=== PATIENT | male | born 1985 | race Caucasian/White ===

== ENCOUNTER 2025-05-16 04:01 | Inpatient (IN) ==
[2025-05-16] MEDS: KETOROLAC TROMETHAMINE 15 MG/ML VIAL IV STA (04:24)
[2025-05-16] MEDS: SODIUM CHLORIDE 0.9% 500 ML IV STA (04:24)
[2025-05-16] MEDS: ONDANSETRON INJ 2 MG/ML 2 ML VIAL IV STA ×2 (04:24→05:59)
[2025-05-16 04:35] LABS: Basophils # (auto) 0.03 K/uL (0.00-0.20); Basophils % (auto) 0.2 %; Eosinophils # (auto) 0.01 K/uL (0.00-0.50); Eosinophils % (auto) 0.1 %; Hematocrit (blood only) 42.9 % (42.0-52.0); Immature Granulocytes # (auto) 0.07 K/uL (0.01-0.20); Immature Granulocytes % (auto) 0.4 %; Lymphocytes # (auto) 1.14 K/uL (1.20-3.40); Lymphocytes % (auto) 6.9 %; Mean Corpuscular Hemoglobin 29.8 pg (25.0-34.0); Mean Corpuscular Volume 85.3 fL (80.0-100.0); Mean Platelet Volume 10.2 fL (9.4-12.4); Monocytes # (auto) 0.98 K/uL (0.11-0.59); Monocytes % (auto) 5.9 %; Neutrophils # (auto) 14.41 K/uL (1.40-6.50); Neutrophils % (auto) 86.5 %; Platelet Count 249 K/uL (130-400); Red Blood Count 5.03 M/uL (4.70-6.10); White Blood Count 16.64 K/ul (4.8-10.8)
--- NOTE | 2025-05-16 04:36 | Emergency Department Note ---
History of Present Illness General Chief complaint: Kidney Stone Stated complaint: kidney stone pain, vomiting, Time Seen by Provider: 05/16/25 04:14 History of Present Illness Maximum Pain Intensity: 7 This 39-year-old male that was seen by myself last night for kidney stones presents for ongoing pain. Patient states he has been vomiting all day. No other complaints since last ER visit. Past Med/Surg History Problem List (Updated 05/16/25 @ 05:45 by Meli Nair PA-C) Acute hyperglycemia (Acute) Ureterolithiasis (Acute) Renal colic on right side (Acute) Social History Smoking Status: Never smoker Preferred Language: Estonian Feels Safe at Home: Yes Review of Systems A total of 10 systems reviewed and were otherwise negative Physical Exam Vital Signs Vital Signs - 24 hr 05/16/25 04:02 05/16/25 04:04 05/16/25 04:33 Temperature 36.8 C Temperature Source Temporal Artery Scan Pulse Rate 77 61 Pulse Rhythm Regular Pulse Strength Normal Respiratory Rate 20 21 Respiratory Effort / Characteristics Non-Labored Non-Labored Spontaneous Respiratory Depth Normal Normal Respiratory Pattern Regular Blood Pressure 145/100 H Blood Pressure Mean 115 Blood Pressure Position Sitting Pulse Oximetry 97 Oxygen Delivery Method Room Air Sepsis Recent Fever Within 48 Hours No Sepsis New/Unexplained Change in Mental Status N/A Sepsis Action Taken by Nursing No Action Required 05/16/25 04:42 05/16/25 04:42 Temperature Temperature Source Pulse Rate 66 70 Pulse Rhythm Pulse Strength Respiratory Rate 19 Respiratory Effort / Characteristics Respiratory Depth Respiratory Pattern Blood Pressure Blood Pressure Mean Blood Pressure Position Pulse Oximetry Oxygen Delivery Method Sepsis Recent Fever Within 48 Hours Sepsis New/Unexplained Change in Mental Status Sepsis Action Taken by Nursing VITALS: Vitals are noted on the nurse's note and reviewed by myself. Vital signs stable. GENERAL: Pleasant patient who appears in pain, in no acute distress, nondiaphoretic, well-developed well-nourished. SKIN: Capillary reflex less than 2 seconds. HEENT: Normocephalic. PERRLA. EOMI. Nares patent. Mucous membranes moist. Neck is supple without nuchal rigidity. HEART: Regular rate and rhythm LUNGS: Clear to auscultation bilaterally without wheezes, rales or rhonchi. No retractions or accessory muscle use. ABDOMEN: Positive bowel sounds x 4. Normal tympanic percussion. Soft, nontender, without masses or organomegaly. Merida sign negative. No guarding or rebound tenderness. no CVA tenderness MUSCULOSKELETAL: No gross musculoskeletal defects. NEURO: Patient was alert and oriented to person place and time. No focal neurological deficits. Course Administered Medications Sodium Chloride (Nss) 1,000 mls @ 999 mls/hr IV .Q1H1M ONE Stop: 05/16/25 06:01 Last Admin: 05/16/25 05:19 Dose: 999 mls/hr Documented By: IDD Discontinued Medications Sodium Chloride (Nss) 500 mls @ 999 mls/hr IV .Q31M STA Stop: 05/16/25 04:45 Last Infusion: 05/16/25 05:19 Dose: Infused Documented By: IDRandy Admin: 05/16/25 04:24 Dose: 999 mls/hr Documented By: STANLEY Ketorolac Tromethamine (Ketorolac Tromethamine 15 Mg/Ml Vial) 10 mg IV NOW STA Stop: 05/16/25 04:16 Last Admin: 05/16/25 04:24 Dose: 10 mg Documented By: STANLEY Morphine Sulfate (Morphine Sulfate 4 Mg/Ml 1 Ml Carp\Vial) 4 mg IV NOW STA Stop: 05/16/25 04:33 Last Admin: 05/16/25 04:38 Dose: 4 mg Documented By: STANLEY Ondansetron HCl (Ondansetron Inj 2 Mg/Ml 2 Ml Vial) 4 mg IV NOW STA Stop: 05/16/25 04:17 Last Admin: 05/16/25 04:24 Dose: 4 mg Documented By: STANLEY Medical Decision Making Medical Records Attestation: I reviewed the patient's medical records. Home Medications Current Medication List: was personally reviewed by me Laboratory Data Attestation: I reviewed the patient's lab results. 05/16/25 04:25 05/16/25 04:25 Lab Results 05/16/25 Range/Units 04:25 WBC 16.64 H (4.8-10.8) K/ul RBC 5.03 (4.70-6.10) M/uL Hgb 15.0 (14.0-18.0) g/dl Hct 42.9 (42.0-52.0) % MCV 85.3 (80.0-100.0) fL MCH 29.8 (25.0-34.0) pg MCHC 35.0 (32.0-36.0) g/dL RDW Std Deviation 37.0 (36.4-46.3) fL RDW Coeff of Efrain 12.0 (11.5-14.5) % Plt Count 249 (130-400) K/uL MPV 10.2 (9.4-12.4) fL Immature Gran % (Auto) 0.4 % Neut % (Auto) 86.5 % Lymph % (Auto) 6.9 % Day % (Auto) 5.9 % Eos % (Auto) 0.1 % Baso % (Auto) 0.2 % Neut # (Auto) 14.41 H (1.40-6.50) K/uL Lymph # (Auto) 1.14 L (1.20-3.40) K/uL Day # (Auto) 0.98 H (0.11-0.59) K/uL Eos # (Auto) 0.01 (0.00-0.50) K/uL Baso # (Auto) 0.03 (0.00-0.20) K/uL Immature Gran # (Auto) 0.07 (0.01-0.20) K/uL Sodium 132 L (136-145) mmol/L Potassium 3.9 (3.5-5.1) mmol/L Chloride 100 (98-107) mmol/L Carbon Dioxide 25 (21-32) mmol/L Anion Gap 7 (3-11) BUN 11 (6-23) mg/dl Creatinine 1.36 (0.6-1.4) mg/dl Est Cr Clr Drug Dosing 89.9 ml/min eGFR 67.47 BUN/Creatinine Ratio 8.1 L (10-20) Glucose 137 H (70-99(Fasting)) mg/dl Calcium 8.8 (8.6-10.3) mg/dl Total Bilirubin 1.3 H D (0.2-1.0) mg/dl AST 36 (13-39) U/L ALT 35 (7-52) U/L Alkaline Phosphatase 68 (34-104) U/L Total Protein 6.6 (6.0-8.3) gm/dl Albumin 4.1 (3.4-5.0) gm/dl Globulin 2.5 (2.5-4.0) gm/dl Albumin/Globulin Ratio 1.6 (0.9-2) MDM Narrative Prior records/ancillary studies reviewed. Triage Nursing notes reviewed. Additional history obtained from nursing The patient's history was concerning for flank pain. Differential diagnosis: Etiologies such as renal colic, appendicitis, diverticulitis, mesenteric ischemia, aortic pathology, infections, inflammatory bowel disease, PUD, biliary pathology, UTI, as well as others were entertained. Physical examination findings: As above. ER treatment provided: Toradol, Zofran, morphine, IV fluids On reassessment the patient felt better. Diagnostic interpretation by me: The labs Independently Interpreted by myself revealed leukocytosis, stable H&H Mild hyperglycemia without DKA Imaging studies: CT from last night was reviewed and showed a right-sided 2 mm stone just above the UVJ IMPRESSION: Right kidney shows hydronephrosis and hydroureter up to an obstructing calculus of size 2mm is noted in right vesicoureteric junction. Consultation: A consultation was placed with the hospitalist. The case was discussed and diagnostics were reviewed. The patient was evaluated in the ER for further treatment. It appears that the patient has isolated renal colic from a right sided stone. Patient was still in moderate amount of pain. This is a second visit. He is requesting admission. Medicine was consulted and the case discussed. He will be evaluated for admission. by the evaluation outlined above emergent etiologies such as appendicitis, diverticulitis, mesenteric ischemia, aortic pathology, infections, inflammatory bowel disease, PUD, biliary pathology, UTI, as well as others were deemed relatively unlikely. The pt informed about the findings as listed above. All questions were answered and pleased with the treatment. The chart was completed utilizing [employer] Speech voice recognition software. Grammatical errors, random word insertions, pronoun errors, and incomplete sentences are an occassional consequence of this system due to software limitations, ambient noise, and hardware issues. Any formal questions or concerns about the content, text, or information contained within the body of this dictation should be directly addressed to the physician roofer assistant for clarification. Impression & Plan Renal colic on right side, Ureterolithiasis, Acute hyperglycemia Discharge Plan Visit Data Chief Complaint: Kidney Stone Stated Complaint: kidney stone pain, vomiting, ED Provider: Jose Crow ED Midlevel Provider: Meli Nair Discharge Problem: Renal colic on right side, Ureterolithiasis, Acute hyperglycemia Patient Disposition: Being Evaluated by Hospitalist Condition: Good Forms Stand Alone Forms: My [facility] Referrals Referrals: Flaca Sorenson MD [Primary Care Provider] -
[2025-05-16] MEDS: MoRPHine SULFATE 4 MG/ML 1 ML CARP\\VIAL IV STA (04:38)
[2025-05-16 04:58] LABS: Albumin Globulin Ratio 1.6 (0.9-2); Albumin Level 4.1 gm/dl (3.4-5.0); BUN Creatinine Ratio 8.1 (10-20); Bilirubin,Total 1.3 mg/dl (0.2-1.0); Calcium 8.8 mg/dl (8.6-10.3); Creatinine Clr Calc Pharmacy 89.9 ml/min; Globulin 2.5 gm/dl (2.5-4.0); Potassium 3.9 mmol/L (3.5-5.1); Total Protein 6.6 gm/dl (6.0-8.3)
[2025-05-16] MEDS: SODIUM CHLORIDE 0.9% 1,000 ML IV ONE (05:19)
[2025-05-16] MEDS: METOCLOPRAMIDE HCL INJ 5 MG/ML 2 ML VIAL IV STA (05:59)
--- NOTE | 2025-05-16 06:06 | History & Physical Report ---
Date of Service May 16, 2025 Assessment & Plan (1) Renal colic on right side: (2) Hyponatremia: Plan 39-year-old male PMHx recently diagnosed with renal calculi (R side) on 05/15/2025 presenting for worsening right-sided pain and vomiting x 1 day. ED evaluation reveals leukocytosis 16.64, stable H&H; CMP sodium 132, creatinine 1.39, ratio 8.1, glucose 137, bilirubin 1.3; CTAP was completed on 05/15/2025 which reveals right kidney hydronephrosis and hydroureter up to an obstructing calculus of 2 mm in R vesicoureteric junction.; Provided with 1.5L NSS, Zofran 4 mg IV x 2, morphine 4 mg IV, metoclopramide 10 mg IV, and ketorolac 10 mg IV in ED. #Renal Colic Ongoing, starting 05/15/2025 now with increased pain and vomiting on 05/16/2025. Diagnosed with R sided renal calculi (2 mm) which had resulted in hydronephrosis and hydroureter. No F/C. - CBC leukocytosis 16.64; CMP with normal renal function; bilirubin 1.3 - BMP am - Pending UA - CTAP completed 05/15/2025 reveals R renal calculus - Regular diet as the patient tolerates - IVF LR @ 125 mL/hr - Zofran prn N/V - Pain management as prescribed - Acetaminophen po modesto, oxycodone po prn, morphine IV prn - Start tamsulosin 0.4mg po - Ceftriaxone 2g IV - Consider urology consult as appropriate - none at time of admission #Hyponatremia Likely secondary to poor oral intake, increased vomiting over the past day. - Na 132, glucose 137; corrected 133- BMP am - IVF as above - Encourage oral intake as tolerable Dispo: Obs, med/sx VTE Prophylaxis: SCDs This document was dictated utilizing [employer]. Please excuse any grammatical errors that may be secondary to use of this software. Admission and Anticipated Discharge Date Admission Date: 05/16/2025 History of Present Illness Chief Complaint: Vomiting, flank pain Primary Care Provider: Flaca Sorenson MD 39-year-old male PMHx recently diagnosed with renal calculi (R side) on 05/15/2025 presenting for worsening right-sided pain and vomiting x 1 day. Patient was recently evaluated in the ED for similar complaints on 05/15/2025 which did reveal a 2 mm obstructing calculus causing R sided hydronephrosis and hydroureter. He was ultimately discharged home and returning now. 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 Reports that he had 2 bites of yogurt the day BUSINESS OFFICE TECHNICIAN and immediately got sick from it. His emesis is clear in color/some old food. No blood. He does not have abdominal pain, only remaining R sided flank pain that has not changed. No radiation to groin or wrapping around. He denies changes in his bowel habits, and specifically no diarrhea. No fevers or chills. Denies chest pain, SOB, diarrhea/constipation, LUTS, URI symptoms, weakness, dizziness, or syncope. ED evaluation reveals leukocytosis 16.64, stable H&H; CMP sodium 132, creatinine 1.39, ratio 8.1, glucose 137, bilirubin 1.3; CTAP was completed on 05/15/2025 which reveals right kidney hydronephrosis and hydroureter up to an obstructing calculus of 2 mm in R vesicoureteric junction.; Provided with 1.5L NSS, Zofran 4 mg IV x 2, morphine 4 mg IV, metoclopramide 10 mg IV, and ketorolac 10 mg IV in ED. Please see Dr. Gross's attestation for adjustments/additions to treatment plan. Past Med/Surg History Problem List (Updated 05/16/25 @ 06:22 by Judi Nair PA-C) Hyponatremia Acute hyperglycemia (Acute) Ureterolithiasis (Acute) Renal colic on right side (Acute) Social History Smoking Status: Never smoker Preferred Language: Malaysian Feels Safe at Home: Yes Review of Systems Review of Systems: All systems reviewed & are unremarkable except as noted in Subjective Physical Exam Physical Exam: General: No acute distress Skin: Warm and dry Head: Normocephalic, atraumatic Eyes: PERRL, conjunctivae clear, sclera non-icteric ENT: External ear and ear canal without swelling; nose atraumatic; good dentition, tongue normal appearance, pharynx normal Neck: Supple, no LAD Cardio: RRR, no M/G/R, S1 and S2 normal Resp: No respiratory distress, Lungs CTA in all lobes bilaterally, no wheezes, rales, or rhonchi Abdomen: Soft, symmetric, very mild generalized tenderness to palpation throughout; No masses or hepatosplenomegaly; Bowel sounds normoactive MSK: No deformities; pulses palpable and equal; no edema. Neuro: Awake, alert; Sensation intact bilaterally; CN grossly intact Psych: Appropriate mood and affect; good judgement and insight. Results & Data Results & Data Vital Signs (Past 12 Hours) Vital Signs Temp Pulse Resp BP Pulse Ox O2 Del Method 05/16/25 04:42 70 19 05/16/25 04:42 66 05/16/25 04:33 61 21 05/16/25 04:04 36.8 C 77 20 145/100 H 97 Room Air Laboratory Results 05/16/25 04:25 WBC 16.64 H RBC 5.03 Hgb 15.0 Hct 42.9 MCV 85.3 MCH 29.8 MCHC 35.0 RDW Std Deviation 37.0 RDW Coeff of Efrain 12.0 Plt Count 249 MPV 10.2 Immature Gran % (Auto) 0.4 Neut % (Auto) 86.5 Lymph % (Auto) 6.9 Wilkes % (Auto) 5.9 Eos % (Auto) 0.1 Baso % (Auto) 0.2 Neut # (Auto) 14.41 H Lymph # (Auto) 1.14 L Wilkes # (Auto) 0.98 H Eos # (Auto) 0.01 Baso # (Auto) 0.03 Immature Gran # (Auto) 0.07 Sodium 132 L Potassium 3.9 Chloride 100 Carbon Dioxide 25 Anion Gap 7 BUN 11 Creatinine 1.36 Est Cr Clr Drug Dosing 89.9 eGFR 67.47 BUN/Creatinine Ratio 8.1 L Glucose 137 H Calcium 8.8 Total Bilirubin 1.3 H D AST 36 ALT 35 Alkaline Phosphatase 68 Total Protein 6.6 Albumin 4.1 Globulin 2.5 Albumin/Globulin Ratio 1.6 Medications Administered 1.5L NSS Zofran 4 mg IV x 2 Morphine 4 mg IV Metoclopramide 10 mg IV Ketorolac 10 mg IV Code Status & VTE Plan Code Status Full Supervising Physician Co-Signing Physician Notes Patient was seen and examined independently I discussed the case with Yana Nair PA-C I reviewed pertinent past medical social family history and also the plan of care and agree with the plan of care. Patient returns after the ER visit from [address] scan of 624 shows this to be a 2 mm stone at the right UVJ patient says he was nauseated and cannot keep food or liquids down In emergency department he is in absolutely no distress His examination is positive for right-sided abdominal pain and CVA angle tenderness Patient admitted for symptom relief for renal colic he will be hydrated aggressively given Flomax urine culture to be obtained he is given a short course of ceftriaxone urology would not be consulted unless this is a persistent hospital course of the 2 mm stone should typically pass Any exceptions will be noted below PG Care Time/CCT Total # of Minutes Spent Total Time Spent with Patient: Total time spent is greater than 50% in coordination of care (as documented) at patient's floor/unit and/or counseling patient: Coding Level of Care Code 11167 INT INP/OBS CARE 3/75MIN Diagnoses Renal colic on right side N23 Hyponatremia E87.1
[2025-05-16] MEDS: MoRPHine SULFATE 2 MG/ML CARP IV STA (06:38)
[2025-05-16 06:51] LABS: Appearance Urine Clear (Clear); Bilirubin Urine Negative (Negative); Blood Urine 1+ (Negative); Color Urine Yellow; Glucose Urine UA Negative (Negative); Ketones Urine 1+ (Negative); Leukocyte Esterase Urine Negative (Negative); Nitrite Urine Negative (Negative); Protein Urine Negative (Negative); Urobilinogen Urine Negative (Negative)
[2025-05-16 06:59] LABS: Epithelial Cell Urine 0-2 /hpf (0-2)
[2025-05-16 07:00] LABS: Bacteria Urine None Seen (None Seen); RBC Urine 0-2 /hpf (0-2); WBC Urine 0-5 /hpf (0-5)
[2025-05-16 07:01] LABS: Calcium Oxalate Crystals Urine Present (None Prsent); Mucus Urine Present (None Prsent)
[2025-05-16] MEDS ORDERED: MoRPHine SULFATE 2 MG/ML CARP IV PRN (11:22)
[2025-05-16] MEDS ORDERED: ONDANSETRON INJ 2 MG/ML 2 ML VIAL IV PRN (11:22)
[2025-05-16] MEDS: MoRPHine SULFATE 4 MG/ML 1 ML CARP\\VIAL IV PRN (11:54)
[2025-05-16] MEDS: SODIUM CHLORIDE 0.9% 1,000 ML IV SCH (11:57)
[2025-05-16] MEDS: TAMSULOSIN HCL 0.4 MG CAP PO SCH (11:57)
[2025-05-16] MEDS: cefTRIAXone SODIUM 2,000 MG/50 ML BAG IV SCH (11:57)
[2025-05-16] MEDS: ACETAMINOPHEN 500 MG TAB PO SCH (11:57)
[2025-05-16 12:27] LABS: BUN Creatinine Ratio 6.8 (10-20); Calcium 8.2 mg/dl (8.6-10.3); Creatinine Clr Calc Pharmacy 83.2 ml/min; Potassium 3.8 mmol/L (3.5-5.1)
[2025-05-16] MEDS: oxyCODONE HCL IR 5 MG TAB (IMMEDIATE RELEASE) PO PRN (13:20)
--- NOTE | 2025-05-16 17:29 | Communication Note ---
Date of Service: May 16, 2025 Follow up Admitted this AM Erik states he's still having significant pain - has moved from flank now its in RLQ/suprapubic area. No further N/V Still needing IV morphine for pain He has chronic lung disease related to his service in [facility]. Usually his O2 sat is around 90 on room air - currently at his baseline -ordered his usual PPI -his is bringing in his Wixela inhaler - ordered NF/home med
[2025-05-16] MEDS: PANTOprazole 40 MG TAB PO SCH (17:48)
--- NOTE | 2025-05-17 11:51 | Hospitalist Progress Note ---
Date of Service May 17, 2025 Assessment & Plan (1) Renal colic on right side: (2) Hyponatremia: Plan 39-year-old male PMHx recently diagnosed with renal calculi (R side) on 05/15/2025 presenting for worsening right-sided pain and vomiting x 1 day. ED evaluation reveals leukocytosis 16.64, stable H&H; CMP sodium 132, creatinine 1.39, ratio 8.1, glucose 137, bilirubin 1.3; CTAP was completed on 05/15/2025 which reveals right kidney hydronephrosis and hydroureter up to an obstructing calculus of 2 mm in R vesicoureteric junction.; Provided with 1.5L NSS, Zofran 4 mg IV x 2, morphine 4 mg IV, metoclopramide 10 mg IV, and ketorolac 10 mg IV in ED. #Renal Colic Ongoing, started Wednesday with R flank pain, pain moved to R pelvis and on CT early 05/15 had 2 mm stone at R UVJ causing 05/15/2025. Admitted with intractable nausea/vomiting, pain. -pain persists, no vomiting. requiring IV morphine for pain control -continue IVF with NS at 150 mL/h to encourage passing stone -Ca oxalate crystals on UA, strain urine -continue flomax -got dose of ceftriaxone at time of admission but UA was not consistent with UTI. No abx right now -repeat BMP and if renal function good restart toradol PRN -AM BMP and CBC #Hyponatremia secondary to poor oral intake, vomiting and pain - resolved after IV fluids - BMP as above #Chronic lung disease - scarring related to inhalant exposure (smoke etc) while [facility] -resumed Wixela, cont PRN albuterol -at baseline #MARIUM - continue CPAP DVT prophylaxis - SQ heparin Admission and Anticipated Discharge Date Admission Date: May 16, 2025 Subjective Continues to have severe pain at RLQ/pelvis, unchanged, requiring morphine, no further nausea/vomiting No SOB or cough. Breathing better after inhaler, CPAP last night Physical Exam Physical Exam: Last 24h vitals reviewed GEN: no acute distress, sitting in bed HEENT: pupils equal, sclerae anicteric, moist MM RESP: normal WOB, CTAB CV: reg no mrg ABD: soft/nt/nd +BT : no bhatti SKIN: warm and dry, no generalized rashes NEURO: AOx person, place, and situation. Face symmetric, speech normal, moves 4 ext spontaneously and equally Results & Data Results & Data Vital Signs (Past 12 Hours) Vital Signs Temp Pulse Resp BP Pulse Ox O2 Del Method 05/17/25 07:19 37.0 C 94 H 20 124/74 90 Room Air PG Care Time/CCT Total # of Minutes Spent Total Time Spent with Patient: Total time spent is greater than 50% in coordination of care (as documented) at patient's floor/unit and/or counseling patient: Coding Level of Care Code 56579 SUB INP/OBS CARE 2/35MIN Diagnoses Renal colic on right side N23 Hyponatremia E87.1
--- NOTE | 2025-05-17 12:33 | Urology Consultation ---
Date of Consultation May 17, 2025 Assessment & Plan (1) Ureterolithiasis: (2) Renal colic on right side: (3) Hydroureter on right: Plan 39-year-old male with right UVJ 2 mm stone associated hydroureteronephrosis and right renal colic. Urology consulted for right UVJ 2 mm stone seen on CT Vital signs stable and patient is afebrile No Blood or urine cultures are pending, UA at in the ER showed calcium oxalate crystals and blood Today he reports 3 out of 10 right lower quadrant pain No labs completed today Recommend: Ordered KUB for evaluation of stone Would recommend repeat baseline labs to further evaluate kidney function Discussed options such as right ureteral stent placement and/or possibly stone extraction versus continued trial of spontaneous passage Discussed risk and benefits of either option, including risk and benefits of intervention including follow-up appointments He declined stent placement today He may require right ureteral stent placement if he clinically worsens or has persistent and uncontrolled pain Would recommend restarting fluids to help with spontaneous passage Continue Flomax as prescribed Other medical management including pain management comfort care per primary team Patient may resume diet today Recommend keep NPO at midnight for reevaluation in the morning Case discussed with Dr. Clinton History of Present Illness Attending Physician: Angelica Padgett MD History of Present Illness 39-year-old male seen in the ER on 05/15/2025 for right renal colic who presented back to the ER for worsening right-sided pain and vomiting x 1 day on 05/16/25. He was originally seen for acute right-sided pain 05/15/[address] found a 2 mm right UVJ stone with associated hydroureter and hydronephrosis. Patient was discharged with trial of passage. He returned to the ER on 05/16/2025 with nausea and vomiting and worsening pain. Labs reviewed 05/16/2025 Creatinine 1.47 WBC [address] completed 05/15/2025 shows 2 mm right UVJ with associated right hydroureter and hydronephrosis. No renal calculi noted. No urine or blood cultures pending, UA at in the ER showed calcium oxalate crystals and blood Seen and examined at bedside. In no acute distress. States he has last had nausea/vomiting approximately 36 hours ago. His pain is now located in the right lower quadrant 3 out of 10, does increase with ambulation. He denies fevers, chills, nausea, vomiting. He has baseline urinary symptoms that are not bothersome, denies urgency, frequency, gross hematuria, dysuria. Admits to dis comfort with urination but does not describe it as burning. He has no history of nephrolithiasis. His mother had a history of renal cancer and nephrolithiasis. Never seen a urologist for any other reason. He is from [place], was up here to work at his local [employer] as he had lost power at his house in [place]. He works in [employer]. Allergies Allergy/AdvReac Type Severity Reaction Status Date / Time No Known Allergies Allergy Unverified 05/16/25 08:52 Home Medications Medication Instructions Recorded Confirmed Type albuterol sulfate 90 mcg/actuation 2 puff inhalation QID PRN 05/16/25 05/16/25 History aerosol inhaler Shortness Of Breath cholecalciferol (vitamin D3) 25 50 mcg PO DAILY 05/16/25 05/16/25 History mcg (1,000 unit) tablet clindamycin phosphate 1 % lotion 1 applic topical BID 05/16/25 05/16/25 History clotrimazole 1 % topical cream 1 applic topical BID PRN Irritation 05/16/25 05/16/25 History fluticasone 250 mcg-salmeterol 50 1 inh inhalation BID 05/16/25 05/16/25 History mcg/dose blistr powdr for inhalation (Wixela Inhub) griseofulvin microsize 500 mg 500 mg PO DAILY 05/16/25 05/16/25 History tablet ketoconazole 2 % topical cream 1 applic topical BID 05/16/25 05/16/25 History lactobacillus combination no.4 3 3,000 mmu cells PO DAILY 05/16/25 05/16/25 History billion cell capsule (Probiotic) lidocaine 5 % topical patch 1 patch transdermal DAILY 05/16/25 05/16/25 History loratadine 10 mg tablet 10 mg PO DAILY 05/16/25 05/16/25 History multivitamin 1 tab PO DAILY 05/16/25 05/16/25 History nystatin 100,000 unit/gram topical 1 applic topical DAILY PRN 05/16/25 05/16/25 History powder Irritation pantoprazole 40 mg tablet,delayed 40 mg PO BID 05/16/25 05/16/25 History release turmeric 400 mg capsule 400 mg PO DAILY 05/16/25 05/16/25 History Patient History Social History Smoking Status: Never smoker Do You Dip or Chew Tobacco: No; Hx Alcohol Use: No Hx Substance Use: No Preferred Language: Bulgarian Communication Ability: Effective Certified Endoscopy Technician Required: No Beliefs That Will Affect Care: None Current Living Situation: Spouse Current Living Situation Comment: lives with spouse and three children Feels Safe at Home: Yes Safety Concerns: Feels Safe At This Time Assistive Devices: CPAP and Glasses Review of Systems Constitutional: as per Subjective / HPI Genitourinary: + as per Subjective / HPI Physical Exam Constitutional: well developed and well nourished; no acute distress Respiratory: normal respiratory effort and able to speak in complete sentences Musculoskeletal: Extremities: extremities normal to inspection Psychiatric: Orientation: alert and oriented x 3 Results & Data Vital Signs (Past 12 Hours) Vital Signs Temp Pulse Resp BP Pulse Ox O2 Del Method 05/17/25 07:19 37.0 C 94 H 20 124/74 90 Room Air PG Care Time/CCT Total # of Minutes Spent Total Time Spent with Patient: Total time spent is greater than 50% in coordination of care (as documented) at patient's floor/unit and/or counseling patient: Coding Level of Care Code 01807 IN/OBS CONSULT LVL 4,60M Diagnoses Ureterolithiasis N20.1 Renal colic on right side N23 Hydroureter on right N13.4
[2025-05-17] MEDS: SODIUM CHLORIDE 0.9% 1,000 ML IV SCH (12:52)
[2025-05-17 13:19] LABS: BUN Creatinine Ratio 5.1 (10-20); Calcium 8.5 mg/dl (8.6-10.3); Creatinine Clr Calc Pharmacy 88.6 ml/min; Potassium 3.6 mmol/L (3.5-5.1)
--- NOTE | 2025-05-17 13:45 | XRay Report ---
KUB HISTORY: right UVJ COMPARISON STUDY: 05/15/2025 FINDINGS: There is moderate retained stool. No bowel obstruction seen. Tiny stone right UVJ is stable . IMPRESSION: Stable tiny stone right UVJ. ACT 112: Negative or not required by law. The above report was generated using voice recognition software. It may contain grammatical, syntax o r spelling errors. Electronically signed by: Dinesh Carias M.D. 05/17/2025 1:44 PM
[2025-05-17 14:50] VITALS: BP 133/79; PULSE 99; RESP 18; TEMP 98.2; O2SAT 88
--- NOTE | 2025-05-17 17:31 | Discharge Summary ---
Discharge Summary Date of Service May 17, 2025 Principal Dx & Hospital Course #1 = Principal Diagnosis (1) Renal colic on right side: (2) Hyponatremia: Plan 39-year-old male PMHx recently diagnosed with renal calculi (R side) on 05/15/2025 presenting for worsening right-sided pain and vomiting x 1 day. ED evaluation reveals leukocytosis 16.64, stable H&H; CMP sodium 132, creatinine 1.39, ratio 8.1, glucose 137, bilirubin 1.3; CTAP was completed on 05/15/2025 which reveals right kidney hydronephrosis and hydroureter up to an obstructing calculus of 2 mm in R vesicoureteric junction.; Provided with 1.5L NSS, Zofran 4 mg IV x 2, morphine 4 mg IV, metoclopramide 10 mg IV, and ketorolac 10 mg IV in ED. #Renal Colic, nephrolithiasis with hydroureter and hydronephrosis Ongoing, started Wednesday with R flank pain, pain moved to R pelvis and on CT early 05/15 had 2 mm stone at R UVJ causing 05/15/2025. Admitted with intractable nausea/vomiting, pain. treated with IV fluids, Flomax, symptomatic management of pain and nausea with IV and p.o. opioids and antiemetics urology consulted and discussed continued attempt to pass stone versus stenting with him, at this time he preferred to continue trying to pass the stone fortunately he passed the stone like this afternoon, it was sent for stone analysis -Ca oxalate crystals on UA gave instructions on avoidance of calcium oxalate stones and maintaining good oral hydration in general -got dose of ceftriaxone at time of admission but UA was not consistent with UTI. No abx right now -repeat BMP and if renal function good restart toradol PRN -AM BMP and CBC #Hyponatremia secondary to poor oral intake, vomiting and pain - resolved after IV fluids - BMP as above #Chronic lung disease - scarring related to inhalant exposure (smoke etc) while serving in [facility] [place] -resumed Wixela, cont PRN albuterol -at baseline #MARIUM - continue CPAP Admission HPI Per Admitting Provider 39-year-old male PMHx recently diagnosed with renal calculi (R side) on 05/15/2025 presenting for worsening right-sided pain and vomiting x 1 day. Patient was recently evaluated in the ED for similar complaints on 05/15/2025 which did reveal a 2 mm obstructing calculus causing R sided hydronephrosis and hydroureter. He was ultimately discharged home and returning now. States that since he was sent home from the ED the day [employer], he has been unable to tolerate anything by mouth. Reports that he had 2 bites of yogurt the day [employer] and immediately got sick from it. His emesis is clear in color/some old food. No blood. He does not have abdominal pain, only remaining R sided flank pain that has not changed. No radiation to groin or wrapping around. He denies changes in his bowel habits, and specifically no diarrhea. No fevers or chills. Denies chest pain, SOB, diarrhea/constipation, LUTS, URI symptoms, weakness, dizziness, or syncope. ED evaluation reveals leukocytosis 16.64, stable H&H; CMP sodium 132, creatinine 1.39, ratio 8.1, glucose 137, bilirubin 1.3; CTAP was completed on 05/15/2025 which reveals right kidney hydronephrosis and hydroureter up to an obstructing calculus of 2 mm in R vesicoureteric junction.; Provided with 1.5L NSS, Zofran 4 mg IV x 2, morphine 4 mg IV, metoclopramide 10 mg IV, and ketorolac 10 mg IV in ED. Please see Dr. Gross's attestation for adjustments/additions to treatment plan. Discharge Exam Last 24h vitals reviewed GEN: no acute distress, lying in bed HEENT: pupils equal, sclerae anicteric, moist MM RESP: normal WOB CV: deferred ABD: nondistended, tender to palpation at a point in his right lower quadrant/pelvis : no bhatti SKIN: warm and dry, no generalized rashes NEURO: AOx person, place, and situation. Face symmetric, speech normal, moves 4 ext spontaneously and equally Discharge Plan Discharge Items Patient Disposition: Home - Self-Care Reason For Visit: RENAL COLIC Discharge Diagnosis: obstructing nephrolithiasis with hydronephrosis and hydroureter Condition on Discharge: Good Activity: Resume your previous activity Non-emergency contact: Primary Care Provider Call non-emergency contact if: you have any medication questions and your symptoms worsen Follow-up/Referrals: Flaca Sorenson MD [Primary Care Provider] - Diet: Regular Addtl Attending Provider Instructions: You were treated for pain and vomiting from passing a small right sided kidney stone Fortunately the stone has passed and we sent it to lab for chemical analysis Depending on the type of stone, diet modification or certain medications might be helpful in preventing more stones Its always a good idea to drink Plenty of fluids so that you are making at least 2.5 L of urine per day. This helps prevent kidney stones you had calcium oxalate crystals in your urine so it is fairly likely this is a calcium oxalate stone which is the most common kind here are some additional measures to prevent calcium oxalate stones: Low-salt diet Maintain normal dietary calcium of 1000 to 1200 mg/day from food not supplements limit but do not eliminate spinach, rhubarb, beets, almonds, sweet potatoes, chocolate, tea. if you eat these combined them with calcium rich foods moderate amount of animal protein intake increase dietary citrate with citrus fruits or lemon juice and water avoid vitamin C supplements At this point you can take acetaminophen and or ibuprofen/naproxen as directed for any residual pain or discomfort from the stone it was a pleasure taking care of you in the hospital, Angelica Padgett MD Pending Studies at Discharge: Yes (stone analysis) Stand-Alone Forms: [facility] [employer], Smoking Cessation Medications and DC Order Prescriptions: New fluticasone propion-salmeterol [Wixela Inhub] 250-50 mcg/dose blister with device 1 inh inhalation BID Qty: 60 0RF Continued multivitamin Tablet 1 tab PO DAILY fluticasone propion-salmeterol [Wixela Inhub] 250-50 mcg/dose blister with device 1 inh INHALATION BID griseofulvin microsize 500 mg tablet 500 mg PO DAILY pantoprazole 40 mg tablet,delayed release (DR/EC) 40 mg PO BID lidocaine 5 % adhesive patch,medicated 1 patch transdermal DAILY nystatin 100,000 unit/gram powder 1 applic TOPICAL DAILY PRN (Reason: Irritation) albuterol sulfate 90 mcg/actuation Hfa Aerosol Inhaler 2 puff INHALATION QID PRN (Reason: Shortness Of Breath) ketoconazole 2 % cream 1 applic TOPICAL BID clotrimazole 1 % Cream 1 applic TOPICAL BID PRN (Reason: Irritation) loratadine 10 mg Tablet 10 mg PO DAILY clindamycin phosphate 1 % lotion 1 applic TOPICAL BID Rx Instructions: Apply to inner thigh cholecalciferol (vitamin D3) 25 mcg (1,000 unit) Tablet 50 mcg PO DAILY Probiotic 3 billion cell Capsule 3,000 mmu cells PO DAILY Rx Instructions: administer with a meal turmeric 400 mg Capsule 400 mg PO DAILY Discharge Orders: Discharge Order (Routine); Ordered 05/17/25 Ordered By: Angelica Padgett Admission Data Admit Date/Time: 05/17/25 11:35 Attending Provider: Angelica Padgett Admit Provider: Angelica Padgett Primary Care Provider: Flaca Sorenson Other Providers: Selvin Gross; [facility]; Sudhir [facility] Hospital Stay Data Consultations 05/16/25 05:45 ED Decision to Admit Stat 05/17/25 12:15 Consult Urology Routine Pending Results Patient Have Any Pending Studies at Discharge: Yes (stone analysis) Discharge Instructions Given to Patient (Per Discharging Provider) You were treated for pain and vomiting from passing a small right sided kidney stone Fortunately the stone has passed and we sent it to lab for chemical analysis Depending on the type of stone, diet modification or certain medications might be helpful in preventing more stones Its always a good idea to drink Plenty of fluids so that you are making at least 2.5 L of urine per day. This helps prevent kidney stones you had calcium oxalate crystals in your urine so it is fairly likely this is a calcium oxalate stone which is the most common kind here are some additional measures to prevent calcium oxalate stones: Low-salt diet Maintain normal dietary calcium of 1000 to 1200 mg/day from food not s upplements limit but do not eliminate spinach, rhubarb, beets, almonds, sweet potatoes, chocolate, tea. if you eat these combined them with calcium rich foods moderate amount of animal protein intake increase dietary citrate with citrus fruits or lemon juice and water avoid vitamin C supplements At this point you can take acetaminophen and or ibuprofen/naproxen as directed for any residual pain or discomfort from the stone it was a pleasure taking care of you in the hospital, Angelica Padgett MD Total Time Total Time Spent Total Time Spent (In Minutes): I personally spent: 40 minutes today on clinical care activities including: reviewing chart notes and vital signs reviewing labs discussion with polymer materials consultant(s)urology discussions with bedside RN examining and counseling the patient writing orders discharge instructions documentation Coding Level of Care Code 49266 INP/OBS DISCH >30 MIN Diagnoses Renal colic on right side N23 Hyponatremia E87.1
[2025-05-17] MEDS ORDERED: HEPARIN SOD 5,000 UNIT/0.5 ML VIAL SQ SCH (21:00)
== END 2025-05-17 18:08 | disposition home or self-care (01) | DRG 694 ==
LOC: SUATTDRO → EDINP 04:01 → ED 04:01 → SUATTDRO 05:58 → EDINP 11:22 → 3N 12:55